=== PATIENT | male | born 1960 | race Caucasian/White ===

== ENCOUNTER 2023-09-27 20:03 | Observation (INO) | payer BC, MEDICARE ==
[~2023-09-27 20:03] MED LIST: Iopamidol-370 76% 500 ML MDV (1 ML CHARGE) ONE
[2023-09-27] MEDS ORDERED: Ondansetron PF 4 MG/2 ML Vial ONE (20:37)
[2023-09-27] MEDS ORDERED: Famotidine/PF 20 mg/2ml Vial ONE (20:37)
[2023-09-27] MEDS ORDERED: Morphine 4 MG/ML VIAL ONE (20:37)
[2023-09-27 20:51] LABS: #Eosinphils 0.1 thou/uL (0.0-0.7); #Neutrophils 7.7 thou/uL (1.40-6.50); %Basophils 0.3 % (0.0-1.0); %Eosinophils 0.8 % (0.0-10.0); %Lymphocytes 16.5 % (21.0-51.0); %Monocytes 9.4 % (0.0-10.0); %Neutrophils 72.8 % (42.0-75.0); Hematocrit 37.7 % (42.0-52.0); Hemoglobin 12.8 g/dL (14.0-18.0); Mean Corpuscular Hemoglobin 30.3 pg (27.0-31.0); Mean Corpuscular Volume 89.1 fl (78.0-98.0); Mean Platelet Volume 8.8 fL (7.4-10.4); Platelet Count 245 10x3/uL (130-400); Red Blood Cell (RBC) Count 4.23 mill/uL (4.70-6.10); White Blood Cell (WBC) Count 10.6 10x3/uL (4.8-10.8)
[2023-09-27 21:16] LABS: Bacteria/HPF None Seen HPF (None Seen); Bilirubin Negative (Negative); Blood, Urine Negative (Negative); CAUTI Indications for Culture Pelvic or flank pain; Clarity Clear (Clear); Glucose, Urine (Dipstick) Normal (Negative); Ketone, Urine Negative (Negative); Leukocyte Negative Leu/uL (Negative); Nitrite Negative (Negative); Protein, Urine (Dipstick) 20 mg/dL (Neg-Trace); RBC/HPF 0-3 HPF (0-3); Specific Gravity, Urine 1.015 (1.002-1.036); Squamous Epithelial 0-3 HPF (0-3); WBC/HPF 0-3 HPF (0-3); pH, Urine 7.5 (5.0-9.0)
[2023-09-27 21:17] LABS: ALT (SGPT) 58 U/L (8-55); AST (SGOT) 96 U/L (5-34); Albumin 3.7 g/dL (3.4-4.8); Alkaline Phosphatase 141 U/L (40-110); Anion Gap 16 mmol/L (10-20); BUN (Urea Nitrogen) 12 mg/dL (8.4-25.7); Bilirubin, Total 1.5 mg/dL (0.2-1.2); Calc. Creatinine Clearance 0 mL/min (70-130); Calcium 9.1 mg/dL (7.8-10.44); Carbon Dioxide 23 mmol/L (23-31); Chloride 98 mmol/L (98-107); Estimated GFR 82; Globulin 3.4 g/dL (2.4-3.5); Glucose 108 mg/dL (80-115); Lipase 28 U/L (8-78); Potassium 4.1 mmol/L (3.5-5.1); Protein, Total 7.1 g/dL (5.8-8.1); Sodium 133 mmol/L (136-145)
[2023-09-27 21:18] LABS: Troponin I Less than 0.010 ng/mL (< 0.028)
[2023-09-27 21:18] LABS: Urine Culture Reflex No No
[2023-09-28] MEDS ORDERED: HYDROcodone/Acetaminophen 5/325 mg Tablet PO PRN (01:36)
[2023-09-28] MEDS ORDERED: Acetaminophen 325 MG TAB PO PRN (01:36)
[2023-09-28] MEDS ORDERED: Calcium Carbonate 500 MG ChewTAB PO PRN (01:36)
[2023-09-28] MEDS ORDERED: Ondansetron ODT 4 MG TAB PO PRN (01:36)
[2023-09-28] MEDS: Lidocaine 2% Viscous Solution 10 ML, Aluminum & Magnesium Hydroxide 30 ML SSW SCH (03:19)
[2023-09-28] MEDS: Dextrose 5%-Lactated Ringers 1,000 ML IV SCH (03:31)
[2023-09-28 03:44] VITALS: BMI 30.5
[2023-09-28 07:28] LABS: #Eosinphils 0.1 thou/uL (0.0-0.7); #Monocytes 0.7 thou/uL (0.11-0.59); #Neutrophils 3.8 thou/uL (1.40-6.50); %Eosinophils 1.3 % (0.0-10.0); %Lymphocytes 17.3 % (21.0-51.0); %Monocytes 12.3 % (0.0-10.0); %Neutrophils 68.9 % (42.0-75.0); Hematocrit 35.5 % (42.0-52.0); Hemoglobin 11.7 g/dL (14.0-18.0); Mean Corpuscular Hemoglobin 30.3 pg (27.0-31.0); Platelet Count 222 10x3/uL (130-400); RBC Distribution Width 15.2 % (11.5-14.5); Red Blood Cell (RBC) Count 3.86 mill/uL (4.70-6.10); White Blood Cell (WBC) Count 5.6 10x3/uL (4.8-10.8)
[2023-09-28 07:55] LABS: ALT (SGPT) 283 U/L (8-55); AST (SGOT) 351 U/L (5-34); Albumin 3.3 g/dL (3.4-4.8); Alkaline Phosphatase 217 U/L (40-110); Anion Gap 10 mmol/L (10-20); BUN (Urea Nitrogen) 9 mg/dL (8.4-25.7); Bilirubin, Total 2.5 mg/dL (0.2-1.2); Calc. Creatinine Clearance 116 mL/min (70-130); Calcium 8.8 mg/dL (7.8-10.44); Carbon Dioxide 26 mmol/L (23-31); Chloride 101 mmol/L (98-107); Estimated GFR 92; Globulin 2.8 g/dL (2.4-3.5); Glucose 146 mg/dL (80-115); Potassium 3.8 mmol/L (3.5-5.1); Protein, Total 6.1 g/dL (5.8-8.1); Sodium 133 mmol/L (136-145)
[2023-09-28] MEDS: Amlodipine 10 MG TAB PO SCH (08:50)
[2023-09-28] MEDS: Levothyroxine Sodium 75 MCG TAB PO SCH (08:50)
[2023-09-28] MEDS: Hydrochlorothiazide 25 MG TAB PO SCH (08:51)
[2023-09-28] MEDS: Famotidine 20 MG TAB PO SCH (08:52)
[2023-09-28] MEDS ORDERED: Amlodipine 10 MG TAB PO SCH (09:00)
[2023-09-28] MEDS ORDERED: Atorvastatin Calcium 40 MG TAB PO SCH ×2 (09:00→21:00)
[2023-09-28] MEDS ORDERED: Hydrochlorothiazide 25 MG TAB PO SCH (09:00)
[2023-09-28] MEDS ORDERED: Acetaminophen 500 MG TAB PO PRN (11:16)
[2023-09-28] MEDS ORDERED: Ketorolac Tromethamine 30 MG (1 mL) VIAL IVP PRN (11:16)
[2023-09-28] MEDS ORDERED: traMADol HCl 50 MG TAB PO PRN (11:16)
[2023-09-28] MEDS: Acetaminophen 500 MG TAB PO SCH (11:57)
[2023-09-28] MEDS: Ketorolac Tromethamine 30 MG (1 mL) VIAL IVP SCH (11:57)
[2023-09-28] MEDS: LevoFLOXacin 750 mg/D5W 750 MG in Premix 1 BAG IVPB SCH (11:57)
[2023-09-28 12:04] VITALS: TEMP 98.4
[2023-09-28] MEDS ORDERED: EPINEPHrine 1 MG/ML VIAL ONE (12:46)
[2023-09-28] MEDS ORDERED: Glucagon 1 MG/ML KIT ONE (12:46)
[2023-09-28] MEDS ORDERED: Iopamidol 30 ML ONE (12:46)
[2023-09-28] MEDS ORDERED: Bupivacaine 0.25% HCL 30 ML VIAL ONE (12:46)
[2023-09-28] MEDS ORDERED: Dexamethasone 20 MG/5 ML VIAL ONE ×2 (12:53→13:01)
[2023-09-28] MEDS ORDERED: fentaNYL PF 100 MCG/2 ML SYRINGE ONE ×3 (12:53→14:41)
[2023-09-28] MEDS ORDERED: Lidocaine 1% PF 5 ML VIAL ONE ×2 (12:53→13:01)
[2023-09-28] MEDS ORDERED: PROPOFOL 20 ML ONE (12:53)
[2023-09-28] MEDS ORDERED: Ondansetron PF 4 MG/2 ML Vial ONE ×2 (12:53→13:01)
[2023-09-28] MEDS ORDERED: Rocuronium Bromide 10 MG/ML (10ML VIAL) ONE ×2 (12:53→13:01)
[2023-09-28] MEDS ORDERED: PROPOFOL 200 MG/20 ML VIAL ONE (13:01)
[2023-09-28] MEDS ORDERED: Glycopyrrolate 0.2 MG/ML 5 ML SYRINGE ONE ×2 (13:01→13:45)
[2023-09-28] MEDS ORDERED: NEOSTIGMINE 3 MG/3 ML SYR 3 MG/3 ML SYRINGE ONE ×2 (13:01→13:45)
[2023-09-28] MEDS ORDERED: SUGAMMADEX SODIUM 200 MG/2 ML VIAL ONE (13:58)
[2023-09-28] MEDS ORDERED: fentaNYL 50 mcg/mL 1 mL Vial ONE (14:02)
[2023-09-28] MEDS ORDERED: Ondansetron HCl/PF 4 MG/2 ML Vial IVP PRN (14:03)
[2023-09-28] MEDS ORDERED: Promethazine HCl 25 MG/ML VIAL IM PRN (14:03)
[2023-09-28] MEDS ORDERED: Labetalol HCl 100 MG/20 ML VIAL SLOW IVP PRN (14:04)
[2023-09-28] MEDS ORDERED: Labetalol HCl 100 MG/20 ML VIAL ONE (14:05)
[2023-09-28 15:52] VITALS: BP 149/90
[2023-09-28] MEDS ORDERED: CABOZANTINIB S MALATE 20 MG PO SCH ×2 (16:00)
[2023-09-28] MEDS: Ibuprofen 600 MG TAB PO PRN (16:26)
[2023-09-29] MEDS ORDERED: Levothyroxine Sodium 75 MCG TAB PO SCH (06:00)
== END 2023-09-28 18:51 | disposition home or self-care (01) ==
LOC: ERS 20:03 → T4-A 09-28 01:48
PROVIDERS: ADMIT Student in an Organized Health Care Education/Training Program; ATTEND Internal Medicine
PROC: 0FT44ZZ Resection of Gallbladder, Percutaneous Endoscopic Approach (ICD-10-PCS; principal; 2023-09-28)
PROC: BF13YZZ Fluoroscopy of Gallbladder and Bile Ducts using Other Contrast (ICD-10-PCS; 2023-09-28)
DX: K80.10 Calculus of gallbladder with chronic cholecystitis without obstruction (principal); K82.8 Other specified diseases of gallbladder; I10 Essential (primary) hypertension; E03.9 Hypothyroidism, unspecified; E78.5 Hyperlipidemia, unspecified; C64.9 Malignant neoplasm of unspecified kidney, except renal pelvis; C79.9 Secondary malignant neoplasm of unspecified site; R74.01 Elevation of levels of liver transaminase levels; E66.9 Obesity, unspecified; Z68.30 Body mass index [BMI] 30.0-30.9, adult; Z88.0 Allergy status to penicillin; Z88.8 Allergy status to other drugs, medicaments and biological substances; Z79.899 Other long term (current) drug therapy; Z79.890 Hormone replacement therapy
CPT/HCPCS: 36415; 47532; 71045; 71275; 74177; 76705; 80053; 81001; 83690; 84484; 85025; 88304; 93005; 96361; 96374; 96375; C1889; G0378; J0171; J0665; J1100; J1611; J1956; J2270; J2405; J2704; J3010; Q9967; S0028